=== PATIENT | male | born 1980 | race Caucasian/White ===

== ENCOUNTER 2017-06-03 16:31 | Emergency (ER) | payer OTHER ==
[2017-06-03] MEDS: ASPIRIN CHEWABLE 81 MG TABLET. PO (17:23)
[2017-06-03 17:30] LABS: ADD MAN DIFF? NO
[2017-06-03 17:32] LABS: BASO # 0.1 x10^3/uL (0.0-0.2); BASO % 1 % (0-3); EOS # 0.1 x10^3/uL (0.0-0.7); EOS % 1 % (0-3); HEMATOCRIT 42.8 % (39.0-53.0); HEMOGLOBIN 14.6 g/dL (13.0-17.5); LYMPH # 2.5 x10^3/uL (1.0-4.8); LYMPH % 37 % (24-48); MEAN CORPUSCULAR HEMOGLOBIN 29 pg (25-35); MEAN CORPUSCULAR HGB CONC 34 g/dL (31-37); MEAN CORPUSCULAR VOLUME 83 fL (79-100); MONO # 0.7 x10^3/uL (0.0-1.1); MONO % 10 % (0-9); NEUT # 3.5 x10^3uL (1.8-7.7); NEUT % 50 % (31-73); PLATELET COUNT 278 x10^3/uL (140-400); RED BLOOD COUNT 5.14 x10^6/uL (4.30-5.70); RED CELL DISTRIBUTION WIDTH 14.3 % (11.5-14.5); WHITE BLOOD COUNT 6.9 x10^3/uL (4.0-11.0)
[2017-06-03 17:53] LABS: TROPONINI < 0.017 ng/mL (0.000-0.055)
[2017-06-03 17:54] LABS: ANION GAP 12 (6-14); BLOOD UREA NITROGEN 9 mg/dL (8-26); BUN/CREATININE RATIO 8 (6-20); CALCIUM 9.2 mg/dL (8.5-10.1); CARBON DIOXIDE 28 mmol/L (21-32); CHLORIDE 104 mmol/L (98-107); CREATININE 1.1 mg/dL (0.7-1.3); GFR 74.9; GLUCOSE 99 mg/dL (70-99); POTASSIUM 4.3 mmol/L (3.5-5.1); SODIUM 144 mmol/L (136-145)
[2017-06-03 17:59] LABS: ALBUMIN 3.6 g/dL (3.4-5.0); ALK PHOS 59 U/L (46-116); ALT (SGPT) 85 U/L (16-63); AST (SGOT) 51 U/L (15-37); TOTAL BILIRUBIN 0.5 mg/dL (0.2-1.0); TOTAL PROTEIN 7.3 g/dL (6.4-8.2)
== END 2017-06-03 18:24 | disposition home or self-care (01) ==
LOC: ER 16:31
DX: F41.9 Anxiety disorder, unspecified (principal); R07.89 Other chest pain; R74.0 Nonspecific elevation of levels of transaminase and lactic acid dehydrogenase [LDH]; Z79.82 Long term (current) use of aspirin; Z79.899 Other long term (current) drug therapy
CPT/HCPCS: 36415; 71045; 80053; 84484; 85025; 93005; 96374; 99285-25; J2060